=== PATIENT | male | born 1995 | race African-American/Black ===

== ENCOUNTER 2024-06-10 14:21 | Emergency (ER) | payer MEDICAID, OTHER ==
[~2024-06-10] VITALS: Ht 177.8 cm; Wt 74.0 kg
[2024-06-10 14:58] LABS: Basophils # (auto) 0.1 10 ^3/uL (0-0.2); Basophils % (auto) 0.8 % (0.0-2.0); Eosinophils # (auto) 0.3 10 ^3/uL (0-0.8); Eosinophils % (auto) 3.4 % (0.0-7.0); Hemoglobin 16.5 g/dL (13.5-17.5); Lymphocytes # (auto) 2.5 10 ^3/uL (0.4-5.4); Lymphocytes % (auto) 29.4 % (10.0-50.0); Mean Corpuscular Hgb Conc. 34.5 g/dL (32.0-36.0); Mean Corpuscular Volume 92.9 fL (80.0-100.0); Monocytes # (auto) 0.8 10 ^3/uL (0-1.3); Monocytes % (auto) 9.2 % (0.0-12.0); Neutrophils # (auto) 4.8 10 ^3/uL (1.6-8.6); Neutrophils % (auto) 57.2 % (37.0-80.0); Nucleated Red Blood Cells % 0.1 %; Platelet Count (auto) 273 10^3/uL (140-450); Red Blood Cells 5.17 10^6/uL (4.5-5.90); Red Cell Distribution Width 13.3 % (11.8-14.3); White Blood Cell 8.4 10^3/uL (4.4-10.8)
[2024-06-10 15:00] LABS: Chloride 107 mmol/L (98-107); Sodium 138 mmol/L (136-145)
[2024-06-10 15:01] LABS: Anion Gap 4 (5-15); Calcium 10.1 mg/dL (8.7-10.4); Carbon Dioxide 27 mmol/L (20-31)
[2024-06-10 15:06] LABS: Blood Urea Nitrogen 11 mg/dL (9-23); Glucose 103 mg/dL (74-106)
[2024-06-10 15:07] LABS: Magnesium 1.9 mg/dL (1.6-2.6)
[2024-06-10] MEDS: SODIUM CHLORIDE 0.9% 2,000 ML IV ONE (15:39)
[2024-06-10 17:16] LABS: Urine Bacteria FEW /hpf (None Seen); Urine Blood Negative /uL (Negative); Urine Clarity Clear (Clear); Urine Color Colorless (Yellow); Urine Protein, UAD Negative (Negative); Urine Specific Gravity 1.008 (1.001-1.035); Urine Urobilinogen Normal (Negative); Urine WBC 3 /hpf (0 - 3)
[2024-06-10 17:23] LABS: Amphetamine Screen, Urine Neg (NEGATIVE)
[2024-06-10 17:24] LABS: Barbiturate Scree,Urine Neg (NEGATIVE); Benzodiazephine Screen, Urine Neg (NEGATIVE); Cannabinoid Screen, Urine Pos (NEGATIVE); Cocaine Screen, Urine Neg (NEGATIVE); Opiate Scree,Urine Neg (NEGATIVE); Phencyclidine Screen, Urine Neg (NEGATIVE)
[2024-06-10 18:40] VITALS: BP 126/94; PULSE 60; RESP 18; TEMP 98.7; O2SAT 100
== END 2024-06-10 18:41 | disposition home or self-care (01) ==
LOC: ER 14:21
DX: E86.0 Dehydration (principal); R55 Syncope and collapse; N28.9 Disorder of kidney and ureter, unspecified; Z79.899 Other long term (current) drug therapy
CPT/HCPCS: 36415; 71046; 80048; 80307; 81001; 83735; 84484; 85025; 93005; 96360; 99285; J7030